=== PATIENT | male | born 1955 | race Caucasian/White ===

== ENCOUNTER 2023-06-24 09:01 | Emergency (ER) | payer MEDICARE, OTHER ==
[2023-06-24] MEDS: Take Home: Acetaminophen/HYDROcodone 325-5 MG, 2 Tab Pack PO ONE (09:29)
== END 2023-06-24 09:35 | disposition home or self-care (01) ==
LOC: CC.ED 09:01
DX: K04.7 Periapical abscess without sinus (principal)
CPT/HCPCS: 99282; 99283; A9270-GY